=== PATIENT | female | born 1985 | race Caucasian/White ===

== ENCOUNTER → 2020-07-05 14:08 | Outpatient (CLI) | payer OTHER ==
--- NOTE | 2020-07-05 15:09 | NUR ---
PATIENT CONSENTED FOR A LEFT SHOULDER ARTHROGRAM WITH MRI TO FOLLOW. TIME PERFORMED AT 1436 BY ALBERTO NEFF(R) AND DR JAMES.
== END | disposition home or self-care (01) ==
LOC: D.RAD 14:08
PROVIDERS: ATTEND Orthopaedic Surgery
DX: S49.92XA Unspecified injury of left shoulder and upper arm, initial encounter (principal)